=== PATIENT | female | born 1995 | race Caucasian/White ===

== ENCOUNTER 2021-01-20 23:54 | Emergency (ER) | payer OTHER ==
[2021-01-21 00:29] VITALS: BP 104/64; PULSE 75; TEMP 98.2; BMI 18.8
[2021-01-21] MEDS ORDERED: FAMOTIDINE 20 MG/50 ML IVPB 20 MG/50 ML MG IVPB ONE ×2 (00:59→01:07)
[2021-01-21] MEDS ORDERED: MAG HYDROX/AL HYDROX/SIMETH 30 ML UNIT-DOSE CUP PO ONE (00:59)
[2021-01-21] MEDS ORDERED: SODIUM CHLORIDE 1,000 ML IV STA (00:59)
[2021-01-21] MEDS ORDERED: ACETAMINOPHEN 500 MG TABLET (FP) PO ONE (00:59)
[2021-01-21] MEDS ORDERED: ACETAMINOPHEN 325 MG TABLET (FP) ONE (01:06)
[2021-01-21] MEDS ORDERED: MAG HYDROX/AL HYDROX/SIMETH 30 ML UNIT-DOSE CUP ONE (01:07)
[2021-01-21 01:36] LABS: BASO % 0.9 % (0-2.0); EOS % 1.6 % (0-4.5); HEMATOCRIT 41.9 % (32.4-45.2); HEMOGLOBIN 14.4 GM/dL (10.7-15.3); LYMPH % 38.8 % (8-40); MCH 32.5 pg (25.7-33.7); MCHC 34.4 g/dl (32.0-36.0); MEAN CELL VOLUME 94.4 fl (80-96); MEAN PLT VOLUME 7.6 fl (7.5-11.1); MONO % 6.7 % (3.8-10.2); PLATELET COUNT 250 10^3/uL (134-434); RBC 4.44 M/mm3 (3.60-5.2)
[2021-01-21 01:39] LABS: EPI CELLS >36 /uL (0-25.1); HYALINE CASTS 6 /uL (0-3.1); URINE APPEARANCE CLEAR; URINE BACTERIA 2959 /uL (0-1359); URINE BILIRUBIN NEGATIVE (NEGATIVE); URINE COLOR DK YELLOW; URINE GLUCOSE (UA) NEGATIVE (NEGATIVE); URINE KETONE NEGATIVE (NEGATIVE); URINE LEUK ESTERASE NEGATIVE (NEGATIVE); URINE NITRITE NEGATIVE (NEGATIVE); URINE PROTEIN NEGATIVE (NEGATIVE); URINE WBC 26 /uL (0-25.8)
[2021-01-21 01:58] LABS: ALBUMIN 4.1 g/dl (3.4-5.0); CALCIUM 8.9 mg/dL (8.5-10.1)
[2021-01-21 01:59] LABS: BLOOD UREA NITROGEN 9.3 mg/dL (7-18); MAGNESIUM 2.3 mg/dL (1.8-2.4)
[2021-01-21 02:01] LABS: CREATININE 0.7 mg/dL (0.55-1.3)
[2021-01-21 02:03] LABS: BILIRUBIN,TOTAL 0.6 mg/dL (0.2-1); TOT PROT 7.7 g/dl (6.4-8.2)
[2021-01-21 02:08] LABS: URINE RBC 37.6 /uL (0-23.9)
[2021-01-21 02:34] LABS: PHOSPHOROUS 4.1 mg/dL (2.5-4.9)
[2021-01-21] MEDS ORDERED: CEPHALEXIN MONOHYDRATE 500 MG CAPSULE (UD) PO ONE (03:51)
[2021-01-21] MEDS ORDERED: CEPHALEXIN MONOHYDRATE 500 MG CAPSULE (UD) ONE (04:04)
== END 2021-01-21 05:43 | disposition home or self-care (01) ==
LOC: JER 23:54
PROC: 3E033NZ Introduction of Analgesics, Hypnotics, Sedatives into Peripheral Vein, Percutaneous Approach (ICD-10-PCS; principal; 2021-01-21)
PROC: 3E0337Z Introduction of Electrolytic and Water Balance Substance into Peripheral Vein, Percutaneous Approach (ICD-10-PCS; 2021-01-21)
DX: R10.9 Unspecified abdominal pain (principal); R63.0 Anorexia; N10 Acute pyelonephritis
CPT/HCPCS: 36415; 71046-TC-FY; 73070-TC-RT-FY; 80053; 81003; 83690; 83735; 84100; 84439; 84443; 84703; 85025; 87086; 87186; 99284-25

== ENCOUNTER 2022-01-03 13:13 | Emergency (ER) | payer OTHER ==
[2022-01-03 14:06] VITALS: BP 103/72; PULSE 68; TEMP 98.2; BMI 22.3
[2022-01-03] MEDS ORDERED: FLUORESCEIN NA 1 EA STRIP ONE (15:39)
[2022-01-03] MEDS ORDERED: TETRACAINE 0.5% OPHTH SOLN 2 ML BOTTLE ONE (15:39)
== END 2022-01-03 16:28 | disposition home or self-care (01) ==
LOC: JERFT 13:13
DX: H00.011 Hordeolum externum right upper eyelid (principal)
CPT/HCPCS: 99283-25

== ENCOUNTER 2024-02-02 19:45 | Emergency (ER) | payer OTHER ==
[2024-02-02 20:00] VITALS: RESP 18; TEMP 97.9; BMI 22.4
[2024-02-02 20:47] LABS: URINE APPEARANCE CLEAR; URINE BILIRUBIN NEGATIVE (NEGATIVE); URINE COLOR YELLOW; URINE GLUCOSE (UA) NEGATIVE (NEGATIVE); URINE KETONE TRACE (NEGATIVE); URINE LEUK ESTERASE NEGATIVE (NEGATIVE); URINE NITRITE NEGATIVE (NEGATIVE); URINE PROTEIN NEGATIVE (NEGATIVE)
[2024-02-02] MEDS ORDERED: ACETAMINOPHEN INJECTION 100 ML IVPB ONE (21:43)
[2024-02-02] MEDS ORDERED: ONDANSETRON 4 MG/2 ML VIAL ONE (21:43)
[2024-02-02] MEDS ORDERED: FAMOTIDINE 20 MG/50 ML IVPB 20 MG/50 ML MG IVPB ONE (21:43)
[2024-02-02] MEDS ORDERED: MAG HYDROX/AL HYDROX/SIMETH 30 ML UNIT-DOSE CUP ONE (21:43)
[2024-02-02] MEDS: FAMOTIDINE 20 MG/50 ML IVPB 20 MG/50 ML MG IVPB ONE (22:02)
[2024-02-02] MEDS: MAG HYDROX/AL HYDROX/SIMETH 30 ML UNIT-DOSE CUP PO ONE (22:02)
[2024-02-02] MEDS: ONDANSETRON 4 MG/2 ML VIAL IVPUSH ONE (22:02)
[2024-02-02] MEDS: ACETAMINOPHEN 1000 MG/100 ML BAG IVPB ONE (22:02)
[2024-02-02 22:07] LABS: BASO % 0.9 % (0-2.0); EOS % 1.5 % (0-4.5); HEMATOCRIT 41.1 % (32.4-45.2); HEMOGLOBIN 14.2 GM/dL (10.7-15.3); LYMPH % 32.1 % (8-40); MCH 31.6 pg (25.7-33.7); MCHC 34.5 g/dl (32.0-36.0); MEAN CELL VOLUME 91.5 fl (80-96); MEAN PLT VOLUME 7.5 fl (7.5-11.1); NEUT % 56.5 % (42.8-82.8); PLATELET COUNT 242 10^3/uL (134-434); RBC 4.49 M/mm3 (3.60-5.2); RDW 14.1 % (11.6-15.6); WHITE BLOOD COUNT 7.4 K/mm3 (4.0-10.0)
[2024-02-02 22:37] LABS: POTASSIUM 4.5 mmol/L (3.5-5.1)
[2024-02-02 22:39] LABS: BLOOD UREA NITROGEN 7.5 mg/dL (7-18)
[2024-02-02 22:40] LABS: ALBUMIN 4.3 g/dl (3.4-5.0)
[2024-02-02 22:42] LABS: CREATININE 0.6 mg/dL (0.55-1.3)
[2024-02-02 22:46] LABS: TOT PROT 7.6 g/dl (6.4-8.2)
[2024-02-02 23:05] LABS: CALCIUM 8.9 mg/dL (8.5-10.1)
[2024-02-02 23:11] LABS: BILIRUBIN,TOTAL 0.8 mg/dL (0.2-1)
[2024-02-02 23:43] VITALS: BP 122/76; PULSE 78
== END 2024-02-02 23:43 | disposition home or self-care (01) ==
LOC: JER 19:45
PROC: 3E033GC Introduction of Other Therapeutic Substance into Peripheral Vein, Percutaneous Approach (ICD-10-PCS; principal; 2024-02-02)
PROC: 3E033GC Introduction of Other Therapeutic Substance into Peripheral Vein, Percutaneous Approach (ICD-10-PCS; 2024-02-02)
DX: O26.891 Other specified pregnancy related conditions, first trimester (principal); R10.11 Right upper quadrant pain; R10.2 Pelvic and perineal pain; R11.0 Nausea; Z3A.01 Less than 8 weeks gestation of pregnancy; O00.201 Right ovarian pregnancy without intrauterine pregnancy
CPT/HCPCS: 36415; 76705-TC; 76817-TC; 80053; 81003; 83690; 84702; 84703; 85025; 86850; 86900; 86901; 87077; 87086; 99284-25

== ENCOUNTER 2024-07-11 12:42 | Emergency (ER) | payer OTHER ==
[2024-07-11] MEDS ORDERED: ACETAMINOPHEN 500 MG TABLET (FP) ONE (13:03)
[2024-07-11] MEDS: ACETAMINOPHEN 500 MG TABLET (FP) PO ONE (13:07)
[2024-07-11 13:58] LABS: URINE APPEARANCE CLEAR; URINE BILIRUBIN NEGATIVE (NEGATIVE); URINE COLOR YELLOW; URINE GLUCOSE (UA) NEGATIVE (NEGATIVE); URINE KETONE NEGATIVE (NEGATIVE); URINE LEUK ESTERASE NEGATIVE (NEGATIVE); URINE NITRITE NEGATIVE (NEGATIVE); URINE PROTEIN NEGATIVE (NEGATIVE)
[2024-07-11 15:08] VITALS: BP 98/59; PULSE 115; RESP 20; TEMP 98
== END 2024-07-11 15:40 | disposition home or self-care (01) ==
LOC: JER 12:42
DX: O99.512 Diseases of the respiratory system complicating pregnancy, second trimester (principal); J10.1 Influenza due to other identified influenza virus with other respiratory manifestations; O99.891 Other specified diseases and conditions complicating pregnancy; R50.9 Fever, unspecified; M79.10 Myalgia, unspecified site; Z3A.00 Weeks of gestation of pregnancy not specified; Z20.822 Contact with and (suspected) exposure to COVID-19
CPT/HCPCS: 0241U-QW; 81003; 87086; 99283-25

== ENCOUNTER 2024-09-13 08:33 | Inpatient (IN) | payer OTHER ==
[2024-09-13] MEDS ORDERED: AMPICILLIN SODIUM 2 GM VIAL ONE (09:20)
[2024-09-13] MEDS ORDERED: OXYTOCIN 20 UNITS in 0.9% NS 20 UNIT/1,000 ML INFUS.BAG IV ONE ×2 (09:20→11:02)
[2024-09-13] MEDS ORDERED: BISACODYL 10 MG SUPP.RECT RC PRN (11:08)
[2024-09-13] MEDS ORDERED: oxyCODONE HCL 5 MG TABLET PO PRN (11:08)
[2024-09-13] MEDS ORDERED: BENZOCAINE 28 GM HEMORRHOIDAL OINTMENT TP PRN (11:08)
[2024-09-13] MEDS: METHYLERGONOVINE MALEATE 0.2 MG/1 ML AMP IM PRN (11:30)
[2024-09-13 11:50] VITALS: BMI 33.2
[2024-09-13 11:54] LABS: CORD BASE EXCESS -5.8 mmol/L (0-2); CORD HCO3 21.2 mmHg (20-29); CORD PCO2 46.9 mmHg (30-78); CORD pH 7.273 (7.14-7.44)
[2024-09-13] MEDS ORDERED: IBUPROFEN 600 MG TABLET (FP) PO ONE (12:01)
[2024-09-13] MEDS: IBUPROFEN 600 MG TABLET (FP) PO PRN (12:19)
[2024-09-13 13:00] LABS: BASO % 0.2 % (0-2.0); EOS % 0.2 % (0-4.5); HEMATOCRIT 30.2 % (32.4-45.2); LYMPH % 7.3 % (8-40); MCH 29.3 pg (25.7-33.7); MCHC 33.1 g/dl (32.0-36.0); MEAN CELL VOLUME 88.7 fl (80-96); MONO % 4.4 % (3.8-10.2); NEUT % 87.9 % (42.8-82.8); PLATELET COUNT 172 10^3/uL (134-434); RDW 15.7 % (11.6-15.6); WHITE BLOOD COUNT 15.4 K/mm3 (4.0-10.0)
[2024-09-13 13:07] LABS: PROTHROMBIN TIME (PATIENT) 10.9 SEC (9.7-13.0)
[2024-09-13 13:10] LABS: ACTIVATED PTT 27.8 SECONDS (25.2-36.5)
[2024-09-13 13:24] LABS: POTASSIUM 4.1 mmol/L (3.5-5.1)
[2024-09-13 13:25] LABS: CALCIUM 8.2 mg/dL (8.5-10.1)
[2024-09-13 13:26] LABS: BLOOD UREA NITROGEN 6.9 mg/dL (7-18)
[2024-09-13 13:29] LABS: CREATININE 0.5 mg/dL (0.55-1.3)
[2024-09-13] MEDS: ELECTROLYTE-148 SOLN 1,000 ML IV SCH (19:08)
[2024-09-13] MEDS: AMPICILLIN - 2 GM in SODIUM CHLORIDE 100 ML IVPB ONE (19:08)
[2024-09-13] MEDS: OXYTOCIN 20 UNITS in 0.9% NS 20 UNIT/1,000 ML INFUS.BAG IV SCH (19:08)
[2024-09-13 22:21] VITALS: RESP 18
[2024-09-13] MEDS: WITCH HAZEL 50% (TUCKS) 40 PAD/JAR PAD TP PRN (22:26)
[2024-09-13] MEDS: BENZOCAINE 20% 57 GM BOTTLE TP PRN (22:26)
[2024-09-14 08:15] LABS: HEMATOCRIT 26.2 % (32.4-45.2); HEMOGLOBIN 9.1 GM/dL (10.7-15.3); MCH 30.4 pg (25.7-33.7); MCHC 34.7 g/dl (32.0-36.0); MEAN CELL VOLUME 87.7 fl (80-96); MEAN PLT VOLUME 8.4 fl (7.5-11.1); PLATELET COUNT 171 10^3/uL (134-434); RBC 2.98 M/mm3 (3.60-5.2); RDW 15.4 % (11.6-15.6); WHITE BLOOD COUNT 13.3 K/mm3 (4.0-10.0)
[2024-09-14] MEDS: PRENATAL VITAMINS W/ FOLIC ACID TABLET (FP) PO SCH (09:25)
[2024-09-14] MEDS: ACETAMINOPHEN 325 MG TABLET (FP) PO PRN (09:25)
[2024-09-14 10:01] LABS: ANISOCYTOSIS 0; HELMET CELLS 0; HOWELL-JOLLY BODIES 0; MACROCYTOSIS 0; OVALOCYTE 0; ROULEAU 0; SICKELED CELLS 0; TARGET CELLS 0; TEAR DROP CELLS 0; TOXIC GRANULATION 0
[2024-09-14] MEDS ORDERED: SENNOSIDES/DOCUSATE COMBO (SENNA PLUS) TABLET (UD) PO PRN (22:00)
[2024-09-15 08:56] VITALS: BP 110/72; PULSE 98; TEMP 98.3
== END 2024-09-15 14:45 | disposition home or self-care (01) | DRG 560 ==
LOC: JLDR 08:33 → J3W 13:00
PROVIDERS: ADMIT Obstetrics & Gynecology; ATTEND Obstetrics & Gynecology
PROC: 10E0XZZ Delivery of Products of Conception, External Approach (ICD-10-PCS; principal; 2024-09-13)
PROC: 0HQ9XZZ Repair Perineum Skin, External Approach (ICD-10-PCS; 2024-09-13)
DX: O70.0 First degree perineal laceration during delivery (principal); Z3A.38 38 weeks gestation of pregnancy; Z37.0 Single live birth
CPT/HCPCS: 36415; 36600; 59409; 80048; 82803; 85025; 85610; 85730; 86780; 86850; 86900; 86901